=== PATIENT | male | born 2005 | race Caucasian/White ===

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

== ENCOUNTER 2023-02-23 13:38 | Emergency (ER) | payer MEDICAID, SELFPAY ==
--- NOTE | 2023-02-23 14:00 | ED.GENADUL_ITS ---
Discharge Plan Disposition Patient Disposition: Home Discharge Details Clinical Impression: Athletes foot Primary Care Provider: oZila Collins ED Provider: Marcelina Johnson Home Meds and New Rx's Prescriptions: New ciclopirox 0.77 % cream 1 applic topical BID 28 Days Qty: 90 1RF Continued clotrimazole 1 % Cream 3 applic TOPICAL TID PRN (Reason: Itching) Discharge Instructions Instructions: Athlete's Foot (ED) Additional Instructions: Please follow-up with your primary care physician. Return to the ER for any worsening or new concerning symptoms. Continue Lotrimin for 3 weeks. If the symptoms are not improving or getting worse fill the prescription for ciclopirox. Call your primary care provider for a follow- up appointment. Referrals: Zoila Collins MD [Primary Care Provider] - Medical Decision Making This is a 17-year-old male who presents with 1 to 2 weeks of bilateral lower extremity itching and soreness. His symptoms are consistent with tinea pedis. He has used [id number] clotrimazole for 1 week which is not sufficient sohan ugh to treat the infection. He has no evidence of necrotizing fasciitis and does not have any history of immune compromise or diabetes. He has not had any fevers or chills. His exam is consistent with tinea pedis. There is no evidence of cellulitis and the symptoms are bilateral.. My plan is to advise the patient to continue the clotrimazole for 3 weeks minimum. I will write a prescription for ciclopirox to fill if the clotrimazole is not improving. I will also advise him to follow-up with his primary care provider for referral to dermatology if needed. Differential Diagnosis Differential Diagnosis: Tinea pedis versus cellulitis versus localized allergic reaction. HPI General Date/Time Provider Initiated Documentation: 02/23/23 13:45 . History of Present Illness 17 year old M presents to the emergency department with the chief co mplaint of Athlete's foot, described as moderate, Quality is described as burning, and it has been intermittent. 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 He presents today with 1 to 2 weeks of redness and intermittent itchiness and soreness of both feet. He has been using clotrimazole with out relief. He denies any previous similar episodes. He denies any pain fevers chills or redness. He denies any aggravating or alleviating factors other than sweating seems to make it worse. Related Data Home Medications Medication Instructions Recorded Confirmed ciclopirox 0.77 % topical cream 1 applic topical BID 4 weeks #90 02/23/23 grams clotrimazole 1 % topical cream 3 applic topical TID PRN Itching 02/23/2303/11 Previous Rx's Medication Instructions Recorded ciclopirox 0.77 % topical cream 1 applic topical BID 4 weeks #90 02/23/23 grams Allergies Allergy/AdvReac Type Severity Reaction Status Date / Time No Known Allergies Allergy Unverified 05/23/21 16:44 General Stated Complaint: RashLesion CATARINA: 4 Review of Systems Constitutional Constitutional: Denies fever(s) PFSH All Active Problems (Updated 02/23/23 @ 14:01 by Marcelina Johnson MD) Finger laceration (Acute) Encounter for removal of sutures (Acute) Athletes foot (Acute) Medical History (Updated 02/23/23 @ 14:01 by Marcelina Johnson MD) Asthma Surgical History (Updated 05/16/21 @ 08:00 by Mireya Levi DO) No significant past surgical history Social History Smoking/Tobacco Use Status: Never Smoking risk assessment performed?: Yes Alcohol Intake: never Drug use: Never Substance use type: does not use Housing: house Do you feel safe at home: Yes Do you feel safe in your relationship?: Yes Exam Const General: cooperative, healthy appearing, comfortable and no acute distress Orientation: alert and awake [facility] Head: normal to inspection, normocephalic and atraumatic Mouth: moist mucous membranes Eyes General: appearance normal, both eyes and all related structures Resp Effort & Inspection: able to speak in complete sentences Skin Other: The patient's feet reveal patchy erythematous dry flaky areas with erythema between the toes. There are no open wounds. No lymphangitis. No subcutaneous emphysema. Cap refills less than 2 seconds bilaterally. Otherwise skin is warm and dry and normal for ethnicity Neuro General: patient alert and patient awake Cognition: normal cognition Extrem Other: As above Psych Mental Status: mental status grossly normal Affect: normal affect Attitude: cooperative Course Vital Signs Vital signs: Respiratory Effort Normal, Non-Labored 02/23/23 13:46 Pain Level 0 02/23/23 13:45
== END 2023-02-23 14:38 | disposition home or self-care (01) ==
PROVIDERS: Emergency Provider Emergency Medicine Emergency Medical Services; PCP Family Medicine
DX: B35.3 Tinea pedis (principal)
CPT/HCPCS: 99283; 99284

== ENCOUNTER 2025-07-24 12:00 | Emergency (ER) | payer SELFPAY ==
[2025-07-24 12:06] VITALS: BP 158/94; PULSE 82; RESP 16; TEMP 36.4; O2SAT 99
--- NOTE | 2025-07-24 14:52 | ED.GENADUL_ITS ---
Discharge Plan Disposition Patient Disposition: Home Condition: Stable Discharge Details Clinical Impression: Abscess, dental Primary Care Provider: Zoila Collins ED Provider: Narda Soto Home Meds and New Rx's Prescriptions: New penicillin V potassium 500 mg tablet 500 mg PO Q6H 10 Days Qty: 40 0RF Continued clotrimazole 1 % Cream 3 applic TOPICAL TID PRN (Reason: Itching) ciclopirox 0.77 % cream 1 applic topical BID 28 Days Qty: 90 1RF Discharge Instructions Instructions: Dental Pain (DC), Dental Pain ED Additional Instructions: Take the antibiotic as prescribed Motrin and Tylenol as needed for pain Follow-up with your dentist in [place] Soft foods will cause less discomfort Return with spreading redness, fever, worsening pain difficulty swallowing Stand Alone Forms: Portal Information Referrals: Zoila Collins MD [Primary Care Provider, Medicine] HPI General Date/Time Provider Initiated Documentation: 07/24/25 12:17 . HPI Narrative: This 19-year-old male presents with dental pain right upper for the past several days. States he feels like he is have some swelling to his right cheek. Has not previously been on antibiotics. He did go to [facility] today and attempted to be seen as a walk-in however they were unable to accommodate and he was sent to the emergency department for assessment. Patient denies any chest pain or shortness of breath or trauma to the area. Denies any difficulty swallowing or fever or chills. Related Data Home Medications ?Medication ?Instructions ?Recorded ?Confirmed ciclopirox 0.77 % topical cream 1 applic topical BID 4 weeks #90 02/23/23 07/24/25 grams clotrimazole 1 % topical cream 3 applic topical TID [place] N Itching 02/23/23 07/24/25 penicillin V potassium 500 mg 500 mg PO Q6H 10 days #4 0 tabs 07/24/25 tablet Previous Rx's ?Medication ?Instructions ?Recorded ciclopirox 0.77 % topical cream 1 applic topical BID 4 weeks #90 02/23/23 grams penicillin V potassium 500 mg 500 mg PO Q6H 10 days #4 0 tabs 07/24/25 tablet Allergies Allergy/AdvReac Type Severity Reaction Status Date / Time No Known Allergies Allergy Unverified 07/24/25 12:09 General Stated Complaint: DentalOral CATARINA: 4 Exam Narrative Exam Narrative: Tooth #1 with fracture noted, no swelling to hard palate no trismus oropharynx patent, uvula midline, widespread dental decay, no evidence of deep space infection, maintaining secretions Course Vital Signs Vital signs: Vital Signs Temperature 36.4 C L 07/24/25 12:06 Pulse 82 07/24/25 12:06 Respiratory Rate 16 07/24/25 12:06 Blood Pressure 158/94 H 07/24/25 12:06 Pulse Oximetry 99 07/24/25 12:06 Temperature 36.4 C L 07/24/25 12:06 Temperature Source Tympanic 07/24/25 12:06 Pulse 82 07/24/25 12:06 Respiratory Rate 16 07/24/25 12:06 Blood Pressure 158/94 H 07/24/25 12:06 Pulse Oximetry 99 07/24/25 12:06 Oxygen Delivery Method Room Air 07/24/25 12:06 Oxygen Flow Rate 0 07/24/25 12:06 Medical Decision Making Assessment and plan: Patient with evidence of likely dental abscess to tooth #1, will prescribe penicillin VK 500 mg 4 times daily for the next 10 days, patient's dentist is not [place], I have given him a local dental list as well. Offered dental block, patient has declined and will continue with supportive care with Motrin and Tylenol at home. No evidence of Phil's angina on today's assessment. Return precautions reviewed and patient expressed understanding PFSH All Active Problems (Updated 07/24/25 @ 12:30 by ALEENA Stringer) Abscess, dental (Acute) Encounter for removal of sutures (Acute) Finger laceration (Acute) Medical History (Updated 07/24/25 @ 12:30 by ALEENA Stringer) Asthma Surgical History (Updated 05/16/21 @ 08:00 by Mireya Levi DO) No significant past surgical history Social History Smoking/Tobacco Use Status: Never Smoking risk assessment performed?: Yes Alcohol Intake: never Drug use: Never Substance use type: does not use Housing: house Do you feel safe at home: Yes Do you feel safe in your relationship?: Yes
== END 2025-07-24 12:35 | disposition home or self-care (01) ==
LOC: ER 07-25 12:38
PROVIDERS: Emergency Provider Physician Assistant; PCP Family Medicine
DX: R68.84 Jaw pain (principal); K04.7 Periapical abscess without sinus
CPT/HCPCS: 99283 ×2